=== PATIENT | female | born 1940 | race African-American/Black ===

== ENCOUNTER 2017-06-29 11:43 | Emergency (ER) | payer OTHER ==
[~2017-06-29] VITALS: Ht 157.5 cm; Wt 42.0 kg
[2017-06-29 11:46] VITALS: BP 0/0
== END 2017-06-29 13:45 | disposition expired ==
LOC: ER 11:49
DX: I46.9 Cardiac arrest, cause unspecified (principal); I10 Essential (primary) hypertension; E11.9 Type 2 diabetes mellitus without complications; J45.909 Unspecified asthma, uncomplicated; Z88.5 Allergy status to narcotic agent
CPT/HCPCS: 92950; 99285